=== PATIENT | male | born 1995 | race Caucasian/White ===

== ENCOUNTER 2019-08-23 15:10 | Emergency (ER) | payer OTHER ==
[2019-08-23] MEDS ORDERED: ACETAMINOPHEN 325 MG TABLET PO ONE (15:22)
[2019-08-23] MEDS ORDERED: CEPHALEXIN 500 MG CAPSULE PO ONE (15:22)
--- NOTE | 2019-08-23 15:26 | ER Document Report ---
ED Medical Screen (RME) - General Chief Complaint: Toe Injury Stated Complaint: TOE PAIN Time Seen by Provider: 08/23/19 15:20 Mode of Arrival: Ambulatory Information source: Patient Notes: 24-year-old male presented to ED for complaint of pain and swelling and drainage from his right great toenail for the last 3 weeks. He states he has not been to see any primary care doctor. He states he does not smoke drink or use any illicit drugs. He states he has a past medical history of anxiety but no surgeries. He states his last tetanus was in 2016. Manual blood pressure is 132/80 in the triage area I have greeted and performed a rapid initial assessment of this patient. A comprehensive ED assessment and evaluation of the patient, analysis of test results and completion of medical decision making process will be conducted by an additional ED providers. - Related Data Allergies/Adverse Reactions: No Known Allergies Allergy (Verified 08/23/19 15:20) Physical Exam - Vital signs Vitals: Temp Pulse Resp BP Pulse Ox 97.9 F 97 20 180/106 H 99 08/23/19 15:14 08/23/19 15:14 08/23/19 15:14 08/23/19 15:14 08/23/19 15:14 Course - Vital Signs Vital signs: Temp Pulse Resp BP Pulse Ox 97.9 F 97 20 180/106 H 99 08/23/19 15:14 08/23/19 15:14 08/23/19 15:14 08/23/19 15:14 08/23/19 15:14
[2019-08-23 18:12] VITALS: BP 154/97
--- NOTE | 2019-08-23 18:17 | ER Document Report ---
ED General - General Chief Complaint: Toe Injury Stated Complaint: TOE PAIN Time Seen by Provider: 08/23/19 15:20 Primary Care Provider: MICHELINE AGUILLON MD [ACTIVE STAFF] - Follow up in 3-5 days (For ingrown toenail removal procedure) Mode of Arrival: Ambulatory Notes: 24-year male presents with left big toe pain redness "ingrown toenail" for about 3 days. [place]iting [place]. No drainage or pus minimal redness. 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 No fevers chills diabetes. - Related Data Allergies/Adverse Reactions: No Known Allergies Allergy (Verified 08/23/19 15:20) Home Medications: anxiety med Past Medical History - General Information source: Patient - Social History Smoking Status: Never Smoker Frequency of alcohol use: None Drug Abuse: None Family History: None Patient has homicidal ideation: No Review of Systems - Review of Systems Notes: REVIEW OF SYSTEMS GEN: Denies fever, chills, weight loss ENT: Denies sore throat, nasal discharge, ear pain EYES: Denies blurry vision, eye pain, discharge CV: Denies chest pain, palpitations, edema RESP: Denies cough, shortness of breath, wheezing GI: Denies abdominal pain, nausea, vomiting, diarrhea MSK: None SKIN: Denies rash, skin lesions LYMPH: Denies swollen glands/lymph nodes NEURO: Denies headache, focal weakness or numbness, dizziness PSYCH: Denies depression, suicidal or homicidal ideation PHYSICAL EXAMINATION General: No acute distress, well-nourished Head: Atraumatic, normocephalic ENT: Mouth normal, oropharynx moist, lips normal Eyes: Conjunctiva normal, pupils equal, lids normal Neck: No JVD, supple, no guarding Resp: No resp distress, equal chest rise GI: Nondistended, no guarding Back: No midline or CVA tenderness Ext: Mild left great toe ingrown toenail with mild redness no drainage minimal tenderness Skin: Well-perfused, no rash Neuro: Awake, alert. Face symmetric. Physical Exam - Vital signs Vitals: Temp Pulse Resp BP Pulse Ox 97.9 F 97 20 180/106 H 99 08/23/19 15:14 08/23/19 15:14 08/23/19 15:14 08/23/19 15:14 08/23/19 15:14 Course - Re-evaluation Re-evalutation: 08/23/19 20:55 Ingrown toenail without infection Recommended soaks and follow-up with Ortho No no indication for surgical treatment today or antibiotics. Has received 1 dose of antibiotics at triage but does not need to be continued I have discussed with the patient there likely diagnosis, aftercare plan, follow-up plans and my usual and customary return precautions. They verbalized understanding of this. - Vital Signs Vital signs: Temp Pulse Resp BP Pulse Ox 98.1 F 88 16 154/97 H 100 08/23/19 18:10 08/23/19 18:10 08/23/19 18:10 08/23/19 18:10 08/23/19 18:10 Discharge - Discharge Clinical Impression: Ingrown toenail of left foot Condition: Good Disposition: HOME, SELF-CARE Instructions: Ingrown Nail ([facility]) Referrals: MICHELINE AGUILLON MD [ACTIVE STAFF] - Follow up in 3-5 days (For ingrown toenail removal procedure)
== END 2019-08-23 18:28 | disposition home or self-care (01) ==
LOC: ER 15:10
DX: L60.0 Ingrowing nail (principal); M79.675 Pain in left toe(s)
CPT/HCPCS: 99283